=== PATIENT | male | born 1995 | race African-American/Black ===

== ENCOUNTER 2017-09-20 16:08 | Emergency (ER) | payer OTHER ==
[~2017-09-20] VITALS: Ht 177.8 cm; Wt 69.8 kg
[~2017-09-20 16:08] MED LIST: BENTYL 20 MG TA20 M1 PO; ZOFRAN ODT4 MG PO
[2017-09-20 16:13] VITALS: BP 114/71
[2017-09-20] MEDS ORDERED: OSELB75 PO (16:56)
== END 2017-09-20 17:02 | disposition home or self-care (01) ==
LOC: ER 16:08
DX: J11.1 Influenza due to unidentified influenza virus with other respiratory manifestations (principal)